=== PATIENT | female | born 1960 | race Hispanic/Latino ===

== ENCOUNTER → 2019-10-13 | Outpatient (CLI) | payer OTHER | END | disposition home or self-care (01) | LOC: OIH 11:06 | PROVIDERS: ATTEND Internal Medicine | DX: M19.042 Primary osteoarthritis, left hand (principal); M19.041 Primary osteoarthritis, right hand; M19.071 Primary osteoarthritis, right ankle and foot; M19.072 Primary osteoarthritis, left ankle and foot; M77.52 Other enthesopathy of left foot and ankle; M77.51 Other enthesopathy of right foot and ankle; M17.0 Bilateral primary osteoarthritis of knee; M25.761 Osteophyte, right knee | CPT/HCPCS: 73560; 73620 ==

== ENCOUNTER → 2024-12-25 | Outpatient (CLI) | payer OTHER ==
--- NOTE | 2024-12-25 14:05 | HMCIMG ---
CT abdomen pelvis without contrast History: Pain COMPARISON: None Technique: Routine helical scanning at 5mm collimation through the abdomen and pelvis was performed after oral and intravenous contrast. CT Dose Index (CTDI): mGy Dose Length Product (DLP): total mGy-cm Findings: The lung bases are clear. The liver, spleen, pancreas, adrenal glands and kidneys are normal in appearance. The gallbladder, spleen and the uterus are surgically absent No pathologic lymphadenopathy is evident. The intestinal gas pattern shows no evidence of dilatation to suggest obstruction or adynamic ileus. There is no evidence of constipation and no bowel wall lesions are noted to suggest neoplasm. There is diverticulosis of the colon, particularly involving the sigmoid. In addition, there are acute inflammatory changes to suggest acute diverticulitis. There is no evidence There is no evidence of pneumoperitoneum. The pelvic viscera are normal in CT appearance. The perirectal fat planes are clear. The visualized osseous elements are normal for the patient's age. IMPRESSION: Acute sigmoid diverticulitis. No evidence of perforation.
== END | disposition home or self-care (01) ==
LOC: RAH 12:59
PROVIDERS: ATTEND Internal Medicine
DX: K57.32 Diverticulitis of large intestine without perforation or abscess without bleeding (principal); R10.32 Left lower quadrant pain
CPT/HCPCS: 74176

== ENCOUNTER → 2025-03-16 | Outpatient (CLI) | payer OTHER | END | disposition home or self-care (01) | LOC: RAH 08:50 | PROVIDERS: ATTEND Internal Medicine | DX: Z12.31 Encounter for screening mammogram for malignant neoplasm of breast (principal) | CPT/HCPCS: 77067 ==